=== PATIENT | male | born 1995 | race Caucasian/White ===

== ENCOUNTER 2018-05-06 01:08 | Emergency (ER) | payer OTHER ==
[2018-05-06] MEDS: IBUPROFEN 800 MG TAB PO (02:03)
== END 2018-05-06 02:06 | disposition home or self-care (01) ==
LOC: E/R 01:08
DX: S40.021A Contusion of right upper arm, initial encounter (principal); Y09 Assault by unspecified means
CPT/HCPCS: 73080; 73080-RT; 73090-RT; 73110-RT; 99283-25